=== PATIENT | male | born 1990 | race Asian ===

== ENCOUNTER 2019-01-26 17:51 | Emergency (ER) | payer BC ==
[~2019-01-26] VITALS: Ht 172.7 cm; Wt 81.6 kg
[2019-01-26] MEDS ORDERED: NAPROXEN500 MG PO (21:48)
[2019-01-26] MEDS ORDERED: NORFLEX100MG PO (21:48)
== END 2019-01-26 21:51 | disposition home or self-care (01) ==
LOC: ER 17:51 → EDBD 18:48 → ER 21:51
DX: S30.0XXA Contusion of lower back and pelvis, initial encounter (principal); W18.09XA Striking against other object with subsequent fall, initial encounter; Y93.59 Activity, other involving other sports and athletics played individually; Y92.832 Beach as the place of occurrence of the external cause; Y99.8 Other external cause status